=== PATIENT | female | born 1985 | race Caucasian/White ===

== ENCOUNTER 2017-05-20 07:05 | Day surgery (SDC) | payer MEDICAID ==
[~2017-05-20 07:05] MED LIST: ACETAMINOPHEN 1,000 MG/100 ML BTL IV ONE
[2017-05-20] MEDS ORDERED: BUPIVACAINE 0.25% W/EPI MPF 30ML VIAL IVP ONE (15:56)
[2017-05-20] MEDS ORDERED: ONDANSETRON HCL IV 4 MG/2 ML VIAL IVP ONE (16:11)
[2017-05-20] MEDS ORDERED: SEVOFLURANE 250 ML INH ONE (16:11)
[2017-05-20] MEDS ORDERED: METOCLOPRAMIDE HCL 10 MG/2 ML VIAL IVP ONE (16:11)
[2017-05-20] MEDS ORDERED: FENTANYL PF 100MCG/2ML VIAL IV ONE (16:11)
[2017-05-20] MEDS ORDERED: MORPHINE SULFATE 5 MG/ML PFS IVP ONE (16:11)
[2017-05-20] MEDS ORDERED: PROPOFOL 10 MG/ML VIAL IV ONE (16:11)
[2017-05-20] MEDS ORDERED: LIDOCAINE 2% MDV (20MG/ML) 20ML VIAL IV ONE (16:11)
--- NOTE | 2017-05-21 14:30 | Operative Note ---
DATE OF SURGERY: 05/20/2017 Surgeon: Girish Soler DO PREOPERATIVE DIAGNOSIS: Bilateral lower extremity masses. POSTOPERATIVE DIAGNOSIS: Bilateral lower extremity muscle hernia. OPERATION: Repair of right lower extremity muscle hernia x2 and left lower extremity muscle hernia x1. Indication: The patient is a 31-year-old female who has had bilateral nodules in her lower extremities. She said these are enlarging and more painful for her. Ultrasound was done which did not show any obvious varicosity. They commented on possible underlying nodules and could not rule out malignancy. On exam, these did get bigger with standing. Therefore, I was suspicious for underlying varicosity not seen on imaging. They were soft. PROCEDURE: Therefore, after consent was signed and questions answered, the patient was taken to the operating room and placed in a supine position. General anesthesia was administered per the department of anesthesia. The patient's legs were prepped and draped in the usual fashion. Starting on the patient's right, the area of the mass was anesthetized with a total of 3 mL of 0.25% Sensorcaine with epinephrine. A 2 cm incision was made. This was carried down to subcutaneous tissue to the fascia overlying the anterior tibialis. There was a 4 mm defect through which muscle belly did herniate. This was repaired with 0 Ethibond in interrupted fashion. Two sutures were placed. Identical procedure was done on the one inferior to this as well as the one on her left leg. The skin was closed with 3-0 and 4-0 Vicryl on each. She tolerated the procedure well. FINDINGS AT THE TIME OF SURGERY: Bilateral lower extremity muscle hernias repaired as above. CC: Saundra RIVERA
== END 2017-05-20 11:28 | disposition home or self-care (01) ==
LOC: SUR 07:05
PROVIDERS: ATTEND Surgery
DX: M62.89 Other specified disorders of muscle (principal); F17.200 Nicotine dependence, unspecified, uncomplicated
CPT/HCPCS: 27656; 01470; J2405; J3010; J2270; J2765

== ENCOUNTER 2018-02-06 06:19 | Day surgery (SDC) | payer MEDICAID ==
[2018-02-06] MEDS ORDERED: ONDANSETRON HCL IV 4 MG/2 ML VIAL IVP ONE (06:20)
[2018-02-06] MEDS ORDERED: PROPOFOL 10 MG/ML VIAL IV ONE (06:20)
[2018-02-06] MEDS ORDERED: LIDOCAINE 1% MDV (10MG/ML) 20ML VIAL SQ ONE (06:20)
[2018-02-06] MEDS ORDERED: SEVOFLURANE 250 ML INH ONE (06:20)
[2018-02-06] MEDS ORDERED: MORPHINE SULFATE 5 MG/ML PFS IVP ONE (06:20)
[2018-02-06] MEDS ORDERED: MIDAZOLAM HCL 2MG/2ML VIAL IV ONE (06:20)
[2018-02-06] MEDS ORDERED: ACETAMINOPHEN 1,000 MG/100 ML BTL IV ONE (06:20)
[2018-02-06] MEDS ORDERED: FENTANYL PF 100MCG/2ML VIAL IV ONE (06:20)
[2018-02-06] MEDS ORDERED: METOCLOPRAMIDE HCL 10 MG/2 ML VIAL IVP ONE (06:20)
--- NOTE | 2018-02-07 12:50 | Operative Note ---
DATE OF SURGERY: 02/06/2018 Surgeon: Lester Castillo DO PREOPERATIVE DIAGNOSIS: Carpal tunnel syndrome of the right wrist. POSTOPERATIVE DIAGNOSIS: Carpal tunnel syndrome of the right wrist. OPERATION: Decompression of right median nerve at the wrist using 3.5 loop magnification. DESCRIPTION OF PROCEDURE: This 32-year-old female was taken to the operating room and placed in the supine position on the operating room table. General anesthesia was induced. The right upper extremity was then elevated. It was prepped with Hibiclens and draped in the usual sterile fashion. It was exsanguinated and the tourniquet inflated to 250 mmHg. A palmar incision was utilized following the hypothenar crease from the level of the base of the web space of the thumb to the flexor crease of the wrist. Dissection was carried down through the skin and subcutaneous tissue. Hemostasis was obtained with the electrocautery. The palmar fascia divided in line with the skin incision. The flexor retinaculum was identified, punctured, and split to its proximal margin. Then with the contents of the carpal tunnel under direct vision, the transverse carpal ligament was transected along its ulnar border. The radial flap was raised to expose the entire median nerve under the transverse carpal ligament. The nerve itself appeared to be grossly normal. The recurrent motor branch was identified and found to be normal. It was in a slightly more central position than normal but otherwise unremarkable. The wound was irrigated and the tourniquet released. Hemostasis obtained with the electrocautery, and the wound closed with interrupted 6-0 nylon suture. Sterile dressings were applied with plaster of splint immobilization with the wrist in slight dorsiflexion and the thumb in an adducted position. CC: Ama Liu, LONG RIVERA
== END 2018-02-06 09:15 | disposition home or self-care (01) ==
LOC: SUR 06:19
PROVIDERS: ATTEND Orthopaedic Surgery
DX: G56.01 Carpal tunnel syndrome, right upper limb (principal)
CPT/HCPCS: J2405; J2765

== ENCOUNTER 2019-02-02 09:45 | Day surgery (SDC) | payer MEDICAID ==
[2019-02-02] MEDS ORDERED: PROPOFOL 10 MG/ML VIAL IV ONE (09:46)
[2019-02-02] MEDS ORDERED: FENTANYL PF 100MCG/2ML VIAL IV ONE (09:46)
[2019-02-02] MEDS ORDERED: RINGERS SOLUTION,LACTATED 1,000 ML IV ONE ×2 (10:45→13:00)
[2019-02-02] MEDS ORDERED: BUPIVACAINE 0.25% W/EPI MPF 30ML VIAL SQ ONE (12:15)
--- NOTE | 2019-02-03 11:50 | Operative Note ---
DATE OF SURGERY: 02/02/2019 PREOPERATIVE DIAGNOSIS: Left lower extremity mass. POSTOPERATIVE DIAGNOSIS: Left lower extremity mass. OPERATION: Excision of left lower extremity mass. SURGEON: Girish Soler D.O. REFERRING PHYSICIAN: Ama Fletcher NP INDICATIONS: The patient is a 33-year-old female who I saw in the past many years ago for muscle herniations through the fascia in her left lower extremity. These were fixed primarily with Ethibond. She had one area where this seemed like it was almost whirling through her skin. She has pain in this area and would like this area excised. Thereafter, consent was signed, questions were answered. PROCEDURE: She was taken to the operating room and placed in the supine position. Local IV sedation was given per the Department of Anesthesia. The patient's leg was prepped and draped in a sterile fashion. The area around the mass was anesthetized with a total of 10 mL of 0.25% Sensorcaine with epinephrine. A 2 cm incision was made. This was carried down to the encapsulated Ethibond suture. This was dissected away from the surrounding tissue with sharp dissection. This was then passed off the field. It appeared that she had formed an intense inflammatory capsule reaction around this. The wound was then irrigated and closed with 3-0 nylon. The size of the mass was 2 cm down into the fascia. She tolerated the procedure well. [facility] HOSPITALBish[facility]
== END 2019-02-02 13:01 | disposition home or self-care (01) ==
LOC: SUR 09:45
PROVIDERS: ATTEND Surgery
DX: R22.42 Localized swelling, mass and lump, left lower limb (principal); E11.9 Type 2 diabetes mellitus without complications
CPT/HCPCS: 27619; 01470; J3010; J7120

== ENCOUNTER 2019-02-12 08:04 | Day surgery (SDC) | payer MEDICAID ==
[~2019-02-12 08:04] MED LIST changes: -ACETAMINOPHEN 1,000 MG/100 ML BTL IV ONE; +ACETAMINOPHEN 1,000 MG/100 ML BTL IVPB ONE
[2019-02-12] MEDS ORDERED: PROPOFOL 10 MG/ML VIAL IV ONE (08:05)
[2019-02-12] MEDS ORDERED: KETOROLAC 30 MG/ML VIAL IVP ONE (08:05)
[2019-02-12] MEDS ORDERED: MIDAZOLAM HCL 2MG/2ML VIAL IV ONE (08:05)
[2019-02-12] MEDS ORDERED: LIDOCAINE 2% MDV (20MG/ML) 20ML VIAL IV ONE (08:05)
[2019-02-12] MEDS ORDERED: SEVOFLURANE 250 ML INH ONE (08:05)
[2019-02-12] MEDS ORDERED: FENTANYL PF 100MCG/2ML VIAL IV ONE (08:05)
[2019-02-12] MEDS ORDERED: ONDANSETRON HCL IV 4 MG/2 ML VIAL IVP ONE (08:05)
[2019-02-12] MEDS ORDERED: RINGERS SOLUTION,LACTATED 1,000 ML IV ONE (09:11)
[2019-02-12] MEDS ORDERED: HYDROCODONE/APAP 5/325MG TABLET PO ONE (11:37)
--- NOTE | 2019-02-13 13:40 | Operative Note ---
DATE OF SURGERY: 02/12/2019 SURGEON: Lester Castillo DO PREOPERATIVE DIAGNOSIS: Carpal tunnel syndrome of the left wrist. POSTOPERATIVE DIAGNOSIS: Carpal tunnel syndrome of the left wrist. OPERATION: Decompression left median nerve of the wrist using 3.5 loop magnification. DESCRIPTION OF PROCEDURE: This 33-year-old female was taken to the operating room and placed in the supine position on the operating room table. General anesthetic was administered. The left upper extremity was elevated, exsanguinated, and the tourniquet inflated to 250 mmHg after prepping with Hibiclens and draping in the usual sterile fashion. A palmar incision was utilized following the hypothenar crease from the level of the base of the webspace of the thumb to the flexor crease of the wrist. Dissection was carried down through the skin and subcutaneous tissue. The palmar fascia was divided in line with the skin incision to expose the flexor retinaculum which was punctured and then split to its proximal margin. With the contents of the carpal tunnel then under direct vision, the transverse carpal ligament was transected along its ulnar border. The radial flap was raised to expose the entire median nerve under the transverse carpal ligament. The recurrent motor branch was easily identified and found to be intact and normal. No defects in the medial nerve were identified. The wound was irrigated with lactated Ringer's solution, and the tourniquet was released and hemostasis obtained with the electrocautery. The wound was then closed with interrupted 6-0 nylon suture. Sterile dressings were applied. Plaster splint immobilization was fixed. The patient was then taken to the recovery room in satisfactory condition. GROSS PATHOLOGY: This patient demonstrated no gross defects of the median nerve or its recurrent motor branch. CC: LONG Yuen
== END 2019-02-12 11:53 | disposition home or self-care (01) ==
LOC: SUR 08:04
PROVIDERS: ATTEND Orthopaedic Surgery
DX: G56.02 Carpal tunnel syndrome, left upper limb (principal)
CPT/HCPCS: J1885; J2405; J7120